=== PATIENT | female | born 1980 ===

== ENCOUNTER 2020-07-17 21:46 | Emergency (ER) | payer BC ==
[2020-07-17] MEDS ORDERED: Phenazopyridine 100 MG Tab ONE (22:00)
[2020-07-17] MEDS ORDERED: Ciprofloxacin 500 MG Tab ONE (22:00)
--- NOTE | 2020-07-17 22:51 | EDM.PDOC ---
ED HPI GENERAL MEDICAL PROBLEM - General Chief Complaint: Genitourinary Problem Stated Complaint: UTI Time Seen by Provider: 07/17/20 22:30 Source of Information: Reports: Patient History Limitations: Reports: No Limitations - History of Present Illness INITIAL COMMENTS - FREE TEXT/NARRATIVE: dysuria and frequencies for 12 hrs. no fever or chills. suprapubic discomfort but no abdominal pain no n/v Onset: Today Duration: Hour(s): (12) - Related Data Allergies Allergy/AdvReac Type Severity Reaction Status Date / Time No Known Allergies Allergy Verified 07/17/20 22:18 Home Meds: Home Meds Ciprofloxacin HCl [Cipro] 500 mg PO BID #6 tablet 07/17/20 [Rx] ED ROS GENERAL - Review of Systems Review Of Systems: See Below Constitutional: Reports: No Symptoms HEENT: Reports: No Symptoms Respiratory: Reports: No Symptoms Cardiovascular: Reports: No Symptoms : Reports: Dysuria, Frequency, Hematuria Musculoskeletal: Reports: No Symptoms Skin: Reports: No Symptoms Neurological: Reports: No Symptoms ED EXAM, RENAL/ - Physical Exam Exam: See Below Exam Limited By: No Limitations General Appearance: Alert, No Apparent Distress Eye Exam: Bilateral Eye: EOMI Respiratory/Chest: No Respiratory Distress Cardiovascular: Regular Rate, Rhythm GI/Abdominal: Normal Bowel Sounds, Soft, Non-Tender Back Exam: Normal Inspection, Full Range of Motion. No: CVA Tenderness (R) Extremities: Normal Inspection Neurological: Alert, Oriented Course - Vital Signs Last Recorded V/S: Last Vital Signs Temp 36.8 C 07/17/20 21:58 Pulse 80 07/17/20 21:58 Resp 18 07/17/20 21:58 BP 160/113 H 07/17/20 21:58 Pulse Ox 100 07/17/20 21:58 - Orders/Labs/Meds Labs: Laboratory Tests 07/17/20 Range/Units 22:10 Urine Color Yellow Urine Appearance Slightly cloudy (CLEAR) Urine pH 6.5 (5.0-8.0) Ur Specific [place] 1.015 (1.003-1.030) Urine Protein 100 H (NEGATIVE) mg/dL Urine Glucose (UA) Negative (NEGATIVE) mg/dL Urine Ketones Negative (NEGATIVE) mg/dL Urine Occult Blood Large H (NEGATIVE) Urine Nitrite Negative (NEGATIVE) Urine Bilirubin Negative (NEGATIVE) Urine Urobilinogen 0.2 (0.2-1.0) E.U./dL Ur Leukocyte Esterase Small H (NEGATIVE) Urine RBC 40-50 H /HPF Urine WBC 75-100 H /HPF Urine WBC Clumps Few /HPF Ur Squamous Epith Cells Few /HPF Urine Bacteria Moderate H /HPF - Re-Assessments/Exams Free Text/Narrative Re-Assessment/Exam: 07/17/20 22:50 UA ++ RBC, WBC, bacteria Departure - Departure Time of Disposition: 22:50 Disposition: Home, Self-Care 01 Condition: Good Clinical Impression: UTI, Urinary tract infectious disease - Discharge Information *PRESCRIPTION DRUG MONITORING PROGRAM REVIEWED*: Not Applicable *COPY OF PRESCRIPTION DRUG MONITORING REPORT IN PATIENT GUERO: Not Applicable Prescriptions: Ciprofloxacin HCl [Cipro] 500 mg PO BID #6 tablet Instructions: Urinary Tract Infection, Adult Forms: ED Department Discharge Additional Instructions: - take antibiotics as prescribed - increase fluids intake - return to the ER if symptoms got worse or any concerns Sepsis Event Note (ED) - Evaluation Sepsis Screening Result: No Definite Risk - Focused Exam Vital Signs: Vital Signs Temp Pulse Resp BP Pulse Ox 07/17/20 21:58 36.8 C 80 18 160/113 H 100 - Problem List & Annotations (1) UTI, Urinary tract infectious disease SNOMED Code(s): 83859572 Code(s): N39.0 - URINARY TRACT INFECTION, SITE NOT SPECIFIED Status: Acute Priority: Low - Problem List Review Problem List Initiated/Reviewed/Updated: Yes - Assessment/Plan Plan: - take antibiotics as prescribed - increase fluids intake - return to the ER if symptoms got worse or any concerns
== END 2020-07-17 23:00 | disposition home or self-care (01) ==
LOC: LB.ED 21:46
DX: N39.0 Urinary tract infection, site not specified (principal)
CPT/HCPCS: 81001; 99283; A9270-GY